=== PATIENT | male | born 1975 | race Caucasian/White ===

== ENCOUNTER 2023-07-05 05:37 | Inpatient (IN) | payer MEDICAID ==
[2023-07-02 14:51] LABS: BASOPHILS # (AUTO) 0.1 X10'3 (0-0.2); BASOPHILS % (AUTO) 0.8 % (0-1); EOSINOPHILS # (AUTO) 0.3 X10'3 (0-0.9); EOSINOPHILS % (AUTO) 3.4 % (0-6); HEMATOCRIT 44.5 % (42.0-52.0); HEMOGLOBIN 15.1 g/dl (14.0-17.9); LYMPHOCYTES # (AUTO) 2.1 X10'3 (1.1-4.8); LYMPHOCYTES % (AUTO) 23.8 % (21-51); MEAN CORPUSCULAR HEMOGLOBIN 30.2 PG (27.0-31.0); MEAN CORPUSCULAR HGB CONC 33.8 g/dL (33.0-36.5); MEAN CORPUSCULAR VOLUME 89.4 FL (78-98); MEAN PLATELET VOLUME 10.3 FL (7.4-10.4); MONOCYTES # (AUTO) 0.8 X10'3 (0-0.9); MONOCYTES % (AUTO) 9.3 % (2-12); NEUTROPHILS # (AUTO) 5.5 X10'3 (1.8-7.7); NEUTROPHILS % (AUTO) 62.7 % (42-75); PLATELET COUNT 215 X10'3 (140-440); RED BLOOD COUNT 4.98 X10'6 (4.70-6.10); RED CELL DISTRIBUTION WIDTH 13.3 % (11.5-14.5); WHITE BLOOD COUNT 8.9 X10'3 (4.5-11.0)
[2023-07-02 14:59] LABS: ALANINE AMINOTRANSFERASE 78 U/L (12-78); ALBUMIN 4.2 G/DL (3.4-5.0); ALBUMIN/GLOBULIN RATIO 1.2 (1.1-1.5); ALKALINE PHOSPHATASE 73 IU/L (46-116); ANION GAP 8 (8-16); ASPARTATE AMINO TRANSFERASE 22 U/L (10-37); BILIRUBIN,TOTAL 0.8 MG/DL (0.1-1.0); BLOOD UREA NITROGEN 20 MG/DL (7-18); BUN/CREATININE RATIO 13.2 (10.0-20.0); CALCIUM 9.1 MG/DL (8.5-10.1); CHLORIDE 105 MMOL/L (99-107); CREATININE 1.51 MG/DL (0.60-1.10); GLUCOSE 86 MG/DL (70-104); POTASSIUM 3.9 MMOL/L (3.5-5.1); SODIUM 138 MMOL/L (135-145); TOTAL CARBON DIOXIDE 24.8 MMOL/L (24-32); TOTAL PROTEIN 7.6 G/DL (6.4-8.2); eGFR 50 ML/MIN
[~2023-07-05] VITALS: Ht 177.8 cm; Wt 83.0 kg
[2023-07-05] VITALS (21 sets, daily range): BP systolic 87–148; BP diastolic 44–100; PULSE 53–81; RESP 10–17; TEMP 97.2–98.9; O2SAT 95–98
[~2023-07-05 05:37] MED LIST: AMLO2.5T4 PO; ASPI-529 PO; LISI20TA28 PO; NORT25CA PO; cefazolin 2gm/D5W 100mL 100 ML IV ONE; famotidine 20mg tablet PO ONE; ringers solution, lacted 1,000 ML IV SCH; tranexamic acid 650mg tablet PO ONE; vancomycin 1,500 MG in NS 300ml IV soln IV ONE
[2023-07-05] MEDS ORDERED: BUPIVACAINE/MELOXICAM 14 ML VIAL IL ONE (06:50)
--- NOTE | 2023-07-05 07:22 | NUR ---
pt followed protocol for total joint decolonization. pt showered x 5 and used mupuroic ointment to bilat nares since wednesday at his pre op appt. Pt has strong palpable pulse to top of left foot marked w/ skin marker. Pt does have small healing area to top pf left knee from previous ingrown hair. Dr. Long is aware and gave ok to proceed w/ surgery. Area is not draining and does not have redness or streaking, looks to be healing. Pt also states he looked over his total joint booklet and states readiness for his total knee.
[2023-07-05] MEDS ORDERED: cloNIDine hcl/PF 100mcg/ml inj ONE (07:23)
[2023-07-05] MEDS ORDERED: BUPIVAcaine/dex-water/PF 7.5 mg/ml 2ml ampul ONE (07:28)
[2023-07-05] MEDS ORDERED: MIDAZolam 1mg/ml 10ml vial ONE (07:29)
[2023-07-05] MEDS ORDERED: fentaNYL/PF 50MCG/1 ML 2ML syringe ONE (07:29)
[2023-07-05] MEDS ORDERED: propofol inj 20 ML IV ONE (09:00)
[2023-07-05] MEDS ORDERED: ROPIVAcaine 0.5% (5mg/ml) 30ml vial ONE (09:00)
[2023-07-05] MEDS ORDERED: BUPIVAcaine/PF 2.5mg/ml (0.25%) 10ml vial ONE (09:08)
--- NOTE | 2023-07-05 09:31 | NUR ---
Received from OR via BED, accompanied by Anesthesiologist DR CERVANTES and report given by Anesthesiologist AND WAX SPECIALIST. PT AWAKE, DENIES PAIN. LEFT KNEE W/LEG WRAP, POWDER PACK ISLAND DRSG COVERING INCISION W/SMALL AMT OF S/S DRAINAGE. DERMATOME LEVEL L-2. Addendum: 07/05/23 at 1011 by Danielle Em RN Amended: Links added.
[2023-07-05] MEDS ORDERED: morphine 2 MG/ML inj. syringe IV PRN (09:40)
[2023-07-05] MEDS ORDERED: meperidine/PF 25mg/ml syringe IV PRN ×3 (09:40)
[2023-07-05] MEDS ORDERED: proCHLORperazine 10 MG/2 ml inj IV PRN (09:40)
[2023-07-05] MEDS ORDERED: ringers solution, lacted 1,000 ML IV SCH (09:40)
[2023-07-05] MEDS ORDERED: oxyCODONE IR 5mg (immed. release) tablet PO PRN (09:40)
[2023-07-05] MEDS ORDERED: magnesium hydroxide 30ml (MOM) UD suspension PO PRN (09:40)
[2023-07-05] MEDS ORDERED: diphenhydrAMINE 25mg capsule PO PRN ×2 (09:40)
[2023-07-05] MEDS ORDERED: naloxone 0.4 mg/ml inj IV PRN (09:40)
[2023-07-05] MEDS ORDERED: morphine 4 MG/ML inj SYRINge IV PRN (09:40)
[2023-07-05] MEDS ORDERED: ondansetron/PF 4mg/2ml inj IV PRN ×2 (09:40)
[2023-07-05] MEDS ORDERED: HYDROmorphone inj. 0.5 MG/0.5 ML DISP.SYRIN IV PRN (09:40)
[2023-07-05] MEDS ORDERED: bisacodyl 10mg suppository rectal RC PRN (09:40)
[2023-07-05] MEDS ORDERED: acetaminophen 325mg tablet PO PRN (09:40)
--- NOTE | 2023-07-05 10:41 | NUR ---
Report called to receiving nurse. Transferred via BED, 1 LARGE BLACK DUFFLE BAG SENT W/PT TO ROOM 4012B. PTS MOM AT BEDSIDE. BLL, CALL LIGHT GIVEN, SIDE RAILS UP X 2. RECEIVING RN NOTIFIED OF PTS ARRIVAL. Special Issues communicated to receiving nurse. YES. Addendum: 07/05/23 at 1103 by Danielle Em RN Amended: Links added.
[2023-07-05] MEDS: oxyCODONE IR 5mg (immed. release) tablet PO PRN ×3 (11:40→20:45)
--- NOTE | 2023-07-05 12:32 | NUR ---
Patient bandages changed many times and continuing to bleed through bandages. patient c/o pain and discomfort in left knee puls weak in left foot and strong in right foot.
--- NOTE | 2023-07-05 12:45 | NUR ---
Bleeding visible on wrap dressing on L knee. Dr Long was notified by Lauren Chandler RN, who asst'd w/ dressing care and positioning of pt. Pt tyrone well. 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
--- NOTE | 2023-07-05 14:46 | NUR ---
Patient laying in bed with knee at 90 degrees. Pain 2/10. good relief from [id number] mg
[2023-07-05] MEDS: acetaminophen 325mg tablet PO SCH ×2 (15:42→20:31)
[2023-07-05] MEDS: ceFAZolin/D5W- 1GM premix 50 ML IV SCH ×2 (15:43→23:47)
--- NOTE | 2023-07-05 16:45 | NUR ---
Dr Tripp rounded. No new orders.
--- NOTE | 2023-07-05 18:00 | NUR ---
I have reviewed and agree with interventions, assessments, and documentation by Joan Rico LVN.
[2023-07-05] MEDS ORDERED: vancomycin/NS 1 GM ADD-VANTAGE 250 ML IV SCH (20:00)
[2023-07-05] MEDS: sennosides 8.6mg tablet PO SCH (20:31)
[2023-07-05] MEDS: nortriptyline 10mg capsule PO SCH (20:32)
[2023-07-05] MEDS: HYDROmorphone 1 mg/ml syringe IV PRN (23:48)
[2023-07-05] MEDS: potassium cl 20mEq in 1/2 NS 1,000 ML IV SCH (23:56)
[2023-07-06] MEDS: acetaminophen 325mg tablet PO SCH ×4 (01:29→20:00)
[2023-07-06 02:00] VITALS: BP 155/86; PULSE 94; RESP 15; TEMP 98.9; O2SAT 94
[2023-07-06] MEDS: oxyCODONE IR 5mg (immed. release) tablet PO PRN ×3 (02:27→17:24)
[2023-07-06] MEDS: HYDROmorphone 1 mg/ml syringe IV PRN (05:13)
[2023-07-06 06:00] VITALS: BP 150/92; PULSE 82; RESP 19; TEMP 100.2; O2SAT 94
--- NOTE | 2023-07-06 06:37 | NUR ---
Patient in room ORTHO 4012. I have received report from raquel vásquez and had the opportunity to ask questions and assume patient care.
[2023-07-06 07:28] LABS: BASOPHILS # (AUTO) 0.1 X10'3 (0-0.2); BASOPHILS % (AUTO) 0.6 % (0-1); EOSINOPHILS % (AUTO) 0.2 % (0-6); HEMATOCRIT 36.1 % (42.0-52.0); HEMOGLOBIN 12.3 g/dl (14.0-17.9); LYMPHOCYTES # (AUTO) 1.3 X10'3 (1.1-4.8); MEAN CORPUSCULAR VOLUME 88.3 FL (78-98); MEAN PLATELET VOLUME 10.3 FL (7.4-10.4); MONOCYTES # (AUTO) 1.6 X10'3 (0-0.9); MONOCYTES % (AUTO) 13.6 % (2-12); NEUTROPHILS # (AUTO) 8.9 X10'3 (1.8-7.7); NEUTROPHILS % (AUTO) 74.6 % (42-75); PLATELET COUNT 176 X10'3 (140-440); RED BLOOD COUNT 4.09 X10'6 (4.70-6.10); RED CELL DISTRIBUTION WIDTH 13.2 % (11.5-14.5)
[2023-07-06 07:53] LABS: ANION GAP 7 (8-16); CHLORIDE 101 MMOL/L (99-107); POTASSIUM 4.2 MMOL/L (3.5-5.1); SODIUM 134 MMOL/L (135-145); TOTAL CARBON DIOXIDE 25.6 MMOL/L (24-32)
[2023-07-06] MEDS: amLODIPine 2.5mg tablet PO SCH (08:03)
[2023-07-06] MEDS: lisinopril 20mg tablet PO SCH (08:03)
[2023-07-06] MEDS ORDERED: aspirin 325mg tablet PO SCH (08:30)
[2023-07-06] MEDS: potassium cl 20mEq in 1/2 NS 1,000 ML IV SCH ×2 (09:40→17:40)
--- NOTE | 2023-07-06 09:40 | NUR ---
PER ORTHO SURGEON, PT CAN HAVE OXY 20 MG TO BETTER MANAGE PAIN AND IBUPROFEN. NO DILAUDID. PT NEEDS TO STAY FOR A LITTLE BIT IN ORDER TO SEE IF PAIN MANAGEMENT IS WORKING PER MD.
--- NOTE | 2023-07-06 10:18 | NUR ---
Joint surgery consult: Pt s/p L knee surgery this admit per EMR. Pt seen by BRIANA at bedside for written/verbal high protein diet ed w/ RD contact information provided. BRIANA enocuraged pt to contact dietitian's office if further nutrition questions/concerns. Addendum: 07/06/23 at [address] Amended: Links added.
--- NOTE | 2023-07-06 10:33 | NUR ---
PER ORTHO MD PT DOES NOT NEED THE HIGH ELEVATION FOR THE KNEE ANYMORE, NORMAL ELEVATION IS FINE, AND HE CAN START TO WORK WITH PHYSICAL THERAPY.
[2023-07-06 11:00] VITALS: BP 159/102; PULSE 91; RESP 16; TEMP 98.8; O2SAT 95
[2023-07-06] MEDS: ibuprofen 200mg tablet PO SCH ×3 (11:19→20:00)
[2023-07-06 18:24] VITALS: BP 138/83; PULSE 74; RESP 18; TEMP 97.4; O2SAT 99
[2023-07-06 19:07] VITALS: RESP 18; O2SAT 99
[2023-07-06] MEDS: nortriptyline 10mg capsule PO SCH (20:17)
[2023-07-06] MEDS: sennosides 8.6mg tablet PO SCH (20:18)
--- NOTE | 2023-07-06 20:28 | NUR ---
per pharmacist, just non admin Tylenol and Motrin dose so it will be back on time for next dosing. discussed with pt and he is fine just taking the next scheduled dose at 0200.
[2023-07-06 22:00] VITALS: BP 136/83; PULSE 74; RESP 20; TEMP 97.9; O2SAT 96
[2023-07-07] MEDS: oxyCODONE IR 5mg (immed. release) tablet PO PRN ×2 (00:34→08:26)
[2023-07-07] MEDS: potassium cl 20mEq in 1/2 NS 1,000 ML IV SCH (01:40)
[2023-07-07] MEDS: ibuprofen 200mg tablet PO SCH ×3 (02:05→14:13)
[2023-07-07] MEDS: acetaminophen 325mg tablet PO SCH ×2 (02:05→08:20)
--- NOTE | 2023-07-07 03:42 | NUR ---
Patient in room ORTHO 4012. I have received report from Danny and had the opportunity to ask questions and assume patient care.
--- NOTE | 2023-07-07 03:49 | NUR ---
Problems reprioritized. Patient report given, questions answered & plan of care reviewed with bernard vásquez .
[2023-07-07 06:00] VITALS: BP 112/66; PULSE 72; RESP 16; TEMP 98.4; O2SAT 96
[2023-07-07 06:42] LABS: BASOPHILS # (AUTO) 0.1 X10'3 (0-0.2); BASOPHILS % (AUTO) 0.4 % (0-1); EOSINOPHILS # (AUTO) 0.2 X10'3 (0-0.9); EOSINOPHILS % (AUTO) 1.8 % (0-6); HEMATOCRIT 33.6 % (42.0-52.0); HEMOGLOBIN 11.3 g/dl (14.0-17.9); LYMPHOCYTES # (AUTO) 2.1 X10'3 (1.1-4.8); LYMPHOCYTES % (AUTO) 14.8 % (21-51); MEAN CORPUSCULAR HEMOGLOBIN 30.3 PG (27.0-31.0); MEAN CORPUSCULAR HGB CONC 33.6 g/dL (33.0-36.5); MEAN CORPUSCULAR VOLUME 90.4 FL (78-98); MEAN PLATELET VOLUME 10.3 FL (7.4-10.4); MONOCYTES # (AUTO) 2.2 X10'3 (0-0.9); MONOCYTES % (AUTO) 15.8 % (2-12); NEUTROPHILS # (AUTO) 9.3 X10'3 (1.8-7.7); NEUTROPHILS % (AUTO) 67.2 % (42-75); PLATELET COUNT 177 X10'3 (140-440); RED BLOOD COUNT 3.72 X10'6 (4.70-6.10); RED CELL DISTRIBUTION WIDTH 13.6 % (11.5-14.5); WHITE BLOOD COUNT 13.8 X10'3 (4.5-11.0)
[2023-07-07 07:45] LABS: TOTAL CELLS COUNTED 100
[2023-07-07 07:46] LABS: BURR CELLS FEW; ELLIPTOCYTES FEW; PLATELET ESTIMATE NORMAL
[2023-07-07 08:20] VITALS: RESP 16; O2SAT 96
[2023-07-07] MEDS: amLODIPine 2.5mg tablet PO SCH (08:20)
[2023-07-07] MEDS: lisinopril 20mg tablet PO SCH (08:21)
[2023-07-07] MEDS ORDERED: acetaminophen 325mg tablet PO PRN (09:40)
[2023-07-07 10:00] VITALS: BP 119/73; PULSE 85; RESP 18; TEMP 98.5; O2SAT 96
[2023-07-07 14:12] VITALS: RESP 16
--- NOTE | 2023-07-07 15:41 | NUR ---
Reviewed discharge instructions with patient. Patient verbalized understanding. Patient was already dressed in his own clothing. Patient picked up post op pain medication prior to surgery. Patient walked downstairs and out of the building to be driven home by family.
== END 2023-07-07 15:00 | disposition home or self-care (01) | DRG 326 ==
LOC: PAS IN 05:37 → ORTHO 4S 10:51
PROVIDERS: ADMIT Orthopaedic Surgery; ATTEND Orthopaedic Surgery
PROC: 8E0Y0CZ Robotic Assisted Procedure of Lower Extremity, Open Approach (ICD-10-PCS; 2023-07-05)
PROC: 8E0YXBZ Computer Assisted Procedure of Lower Extremity (ICD-10-PCS; 2023-07-05)
PROC: 3E0T3BZ Introduction of Anesthetic Agent into Peripheral Nerves and Plexi, Percutaneous Approach (ICD-10-PCS; 2023-07-05)
PROC: 0SRD0J9 Replacement of Left Knee Joint with Synthetic Substitute, Cemented, Open Approach (ICD-10-PCS; principal; 2023-07-05 07:28)
DX: M17.12 Unilateral primary osteoarthritis, left knee (principal); I10 Essential (primary) hypertension; M96.840 Postprocedural hematoma of a musculoskeletal structure following a musculoskeletal system procedure; Y83.1 Surgical operation with implant of artificial internal device as the cause of abnormal reaction of the patient, or of later complication, without mention of misadventure at the time of the procedure; Y92.238 Other place in hospital as the place of occurrence of the external cause; Z88.2 Allergy status to sulfonamides
CPT/HCPCS: 36415; 80051; 80053; 82948; 85007; 85025; 87081; 93005; 97110; 97116; 97161; 97530; A4215; A6253; A6446; A6449; A7000; C1713; C1758; C1776; G0378; J0690; J0735; J1170; J2250; J2704; J2795; J3010; J3370; J3480; J3490; J7120